=== PATIENT | female | born 1975 | race Caucasian/White ===

== ENCOUNTER 2017-08-09 13:43 | Inpatient (IN) | payer OTHER, BC ==
[2017-08-09] VITALS (8 sets, daily range): BP systolic 92–133; BP diastolic 51–77
[~2017-08-09] VITALS: Ht 167.6 cm; Wt 90.0 kg
[~2017-08-09 13:43] MED LIST: ACET1TAB33 PO; ALPR0.5T PO; CEFT1VIA IJ; CITA20TA9 PO; CYCL-331 PO; FLUC100T7 PO; Hydrocodone Bit/Acetaminophen PO; INSU100C4 SQ; INSU100I13 SQ; METO25TA2 PO; MICO30CR11 TP
[2017-08-09] MEDS ORDERED: HYDR200T71 PO (15:36)
[2017-08-09] MEDS ORDERED: PREG100C PO (15:36)
[2017-08-09] MEDS ORDERED: TOPI100T42 PO (15:36)
[2017-08-09] MEDS ORDERED: CLON1TAB3 PO (15:36)
[2017-08-09] MEDS ORDERED: BUPR300T3 PO (15:36)
[2017-08-09] MEDS ORDERED: SERT100T PO (15:36)
[2017-08-09] MEDS ORDERED: INSU200I SQ (15:36)
[2017-08-09] MEDS ORDERED: INSU100I32 SQ (15:36)
[2017-08-09] MEDS ORDERED: ATOR40TA PO (15:36)
[2017-08-09] MEDS ORDERED: diphenhydrAMINE 50 MG/ML VIAL IV PRN (15:45)
[2017-08-09] MEDS ORDERED: CALCIUM CARBONATE 500 MG TAB.CHEW PO PRN (15:45)
[2017-08-09] MEDS ORDERED: ELECTROLYTE (NON-ICU) PROTOCOL MC PRN (15:45)
[2017-08-09] MEDS ORDERED: PROCHLORPERAZINE 10 MG/2 ML VIAL. IV PRN (15:45)
[2017-08-09] MEDS ORDERED: clonazePAM 1 MG TABLET PO PRN (15:45)
[2017-08-09] MEDS ORDERED: INSULIN REGULAR 150 UNIT in 0.9 % SODIUM CHLORIDE 150ML 150 ML IV PRN (15:45)
[2017-08-09] MEDS ORDERED: PROMETHAZINE 12.5 MG in IV NORMAL SALINE 50ML 50 ML IV PRN (15:45)
[2017-08-09] MEDS ORDERED: ONDANSETRON PF 4 MG/2 ML VIAL. IV PRN (15:45)
[2017-08-09] MEDS ORDERED: diphenhydrAMINE HCL 25 MG CAPSULE PO PRN (15:45)
[2017-08-09] MEDS ORDERED: LACTULOSE 20 GM/30 ML SOLUTION. PO PRN (15:45)
[2017-08-09] MEDS ORDERED: ACETAMINOPHEN 325 MG TABLET PO PRN (15:45)
[2017-08-09] MEDS ORDERED: 0.9 % SODIUM CHLORIDE 10 ML DISP.SYRIN. IV PRN (15:45)
--- NOTE | 2017-08-09 15:52 | PDOC1 ---
History of Present Illness Reason for Visit: DKA History of Present Illness Pt reports she is a Type 1 diabetic and was in her normal state of health until Monday, when she started to feel "sick." She denies vomiting, but states she did have nausea and diarrhea on Monday. She also started her menstrual cycle on Monday, which she says was on-time and normal for her. She denies any recent URI symptoms, no cough, congestion, runny nose, fever, or headache. She was feeling a little "out of it," and went to the ER at [facility] on Monday. She apparently had labs, a UA, and CXR, and nothing was found wrong, and she was sent home. She says her sugars have been in the 300 range, but not as high as they were the last time she was in DKA. She says she has not eaten since yesterday. Today, she was feeling worse so she went to her doctor's office and was sent straight to the ER. She was dx w/ DKA, HCO3 was 7. CT head was negative. Pt was given at least 3 liters of NS. She is on an insulin drip, BG in low 200's. Currently, she states she feels much better and wants to eat. Pt 's primary complaint on admission to the ER was palpitations, EKG reported negative except for sinus tach in ER. Chief Complaint: "I don't feel right" Allergies: Coded Allergies: No Known Drug Allergies (Unverified , 06/21/14) Past Medical History Cardiac: hyperipidemia Psych: Depression Endocrine: Diabetes (Type 1) Past Surgical History: No pertinent history Family History: No pertinent hx Past Social History Smoke: 1 pack per day Alcohol: rare (One drink this weekend, which is rare for her) Drugs: None Lives: with Family Review of Systems Review Of Systems Fourteen system , review of systems has been reviewed. See HPI for pertinent positives and negative responses, other wadsworth all other systems are negative, non pertinent or non contributory Allergies: Coded Allergies: No Known Drug Allergies (Unverified , 06/21/14) Medications Current Medications Insulin Human Regular 150 unit/ Sodium Chloride 151.5 ml @ 0 mls/hr CONT PRN PRN IV PER PROTOCOL; Start 08/09/17 at 15:45 Sodium Chloride (Normal Saline Flush) 3 ml PRN DAILY PRN IV AFTER MEDS AND BLOOD DRAWS; Start 08/09/17 at 15:45; Status UNV Acetaminophen (Tylenol) 650 mg PRN Q6HRS PRN PO Headaches, Temp > 101.5F; Start 08/09/17 at 15:45; Status UNV Lactulose (Lactulose) 20 gm PRN Q12HR PRN PO CONSTIPATION; Start 08/09/17 at 15 :45; Status UNV Calcium Carbonate/ Glycine (Tums) 500 mg PRN Q3HRS PRN PO HEARTBURN / GAS; Start 08/09/17 at 15:45; Status UNV Info (Non-Icu Electrolyte Protocol) 1 ea CONT PRN PRN MC SEE COMMENTS; Start at 15:45; Status UNV Prochlorperazine Edisylate (Compazine) 10 mg PRN Q4HRS PRN IV NAUSEA/VOMITING; Start 08/09/17 at 15:45; Status UNV Promethazine HCl 12.5 mg/Sodium Chloride 50.5 ml @ 100 mls/hr PRN Q6HRS PRN IV NAUSEA/VOMITING; Start 08/09/17 at 15:45; Status UNV Ondansetron HCl (Zofran) 4 mg PRN Q8HRS PRN IV NAUSEA/VOMITING; Start 08/09/17 at 15:45; Status UNV Diphenhydramine HCl (Benadryl) 25 mg PRN Q6HRS PRN PO SEE COMMENTS; Start 08/09 at 15:45; Status UNV Diphenhydramine HCl (Benadryl) 25 mg PRN Q6HRS PRN IV SEE COMMENTS; Start 08/09 at 15:45; Status UNV Bupropion HCl (Wellbutrin Xl) 300 mg DAILY PO ; Start 08/10/17 at 09:00; Status UNV Active Scripts Active Reported Topamax (Topiramate) 100 Mg Tablet 1 Tab PO DAILY Zoloft (Sertraline Hcl) 100 Mg Tablet 1 Tab PO DAILY Lyrica (Pregabalin) 100 Mg Capsule 1 Cap PO TID Humalog Kwikpen (Insulin Lispro) 200 Unit/1 Ml Insuln.pen 25 Unit SQ TIDAC Basaglar Kwikpen U-100 (Insulin Glargine,Hum.rec.anlog) 100 Unit/1 Ml Insuln.pen 80 Unit SQ DAILY Plaquenil (Hydroxychloroquine Sulfate) 200 Mg Tablet 200 Mg PO DAILY Clonazepam 1 Mg Tablet 1 Tab PO BID PRN Wellbutrin Xl (Bupropion Hcl) 300 Mg Tab.er.24h 1 Tab PO DAILY Lipitor (Atorvastatin Calcium) 40 Mg Tablet 1 Tab PO DAILY Exam Vital Signs Vital Signs Date Time Temp Pulse Resp B/P (MAP) Pulse Ox O2 Delivery O2 Flow Rate FiO2 08/09/17 15:37 98.8 98 21 111/77 (88) 98 Room Air General Appearance: Alert, Oriented X3, Cooperative, No acute distress HEENT: Atraumatic, PERRLA, EOMI, Mucous membr. moist/pink, Other (Neck supple, full ROM, no JVD< no LAD, No thyromegaly) Respiratory: Clear to auscultation, Normal air movement Heart: Regular rate, Normal S1, Normal S2, No murmurs Abdominal: Normal bowel sounds, Soft, No tenderness, No hepatospenomegaly, No masses Extremities: No edema, Normal pulses, No tenderness/swelling Skin: No rashes, No breakdown Neuro: Normal speech, Strength at 5/5 X4 ext, Normal tone, Sensation intact, Cranial nerves 3-12 NL, Reflexes 2+ Psych/Mental Status: Mental status NL, Mood NL Assessment/Plan Assessment/Plan 1. DKA: IVF pending BMP results. Advance diet. Insulin drip. F/u on cultures from [facility]. Pt already feeling better. May transition back to normal insulin dosing this evening. Will see how next BMP looks. 2. Depression: Continue home meds, pt stable. 3. Hyperlipidemia: Cont statin. 4. DVT proph: Low risk, ambulate when possible, SCD's while in bed. COURSE Allergies Coded Allergies Type Severity Reaction Last Updated Verified No Known Drug Allergies 06/21/14 No Current Medications Medications (Trade) Dose Ordered Sig/[place] Route PRN Reason Start Time Stop Time Status Last Admin Dose Admin Insulin Human Regular 150 unit/ Sodium Chloride 151.5 ml @ 0 mls/hr CONT PRN PRN IV PER PROTOCOL 08/09/17 15:45 Sodium Chloride (Normal Saline Flush) 3 ml PRN DAILY PRN IV AFTER MEDS AND BLOOD DRAWS 08/09/17 15:45 UNV Acetaminophen (Tylenol) 650 mg PRN Q6HRS PRN PO Headaches, Temp > 101.5F 08/09/17 15:45 UNV Lactulose (Lactulose) 20 gm PRN Q12HR PRN PO CONSTIPATION 08/09/17 15:45 UNV Calcium Carbonate/ Glycine (Tums) 500 mg PRN Q3HRS PRN PO HEARTBURN / GAS 08/09/17 15:45 UNV Info (Non-Icu Electrolyte Protocol) 1 ea CONT PRN PRN MC SEE COMMENTS 08/09/17 15:45 UNV Prochlorperazine Edisylate (Compazine) 10 mg PRN Q4HRS PRN IV NAUSEA/VOMITING 08/09/17 15:45 UNV Promethazine HCl 12.5 mg/Sodium Chloride 50.5 ml @ 100 mls/hr PRN Q6HRS PRN IV NAUSEA/VOMITING 08/09/17 15:45 UNV Ondansetron HCl (Zofran) 4 mg PRN Q8HRS PRN IV NAUSEA/VOMITING 08/09/17 15:45 UNV Diphenhydramine HCl (Benadryl) 25 mg PRN Q6HRS PRN PO SEE COMMENTS 08/09/17 15:45 UNV Diphenhydramine HCl (Benadryl) 25 mg PRN Q6HRS PRN IV SEE COMMENTS 08/09/17 15:45 UNV Bupropion HCl (Wellbutrin Xl) 300 mg DAILY PO 08/10/17 09:00 UNV Vital Signs Date Time Temp Pulse Resp B/P (MAP) Pulse Ox O2 Delivery O2 Flow Rate FiO2 08/09/17 15:37 98.8 98 21 111/77 (88) 98 Room Air ANETA LOUIS MD Aug 09, 2017 15:52
[2017-08-09 16:25] LABS: CALCIUM 8.5 mg/dL (8.5-10.1); CREATININE 0.7 mg/dL (0.6-1.0); GFR 92.7; POTASSIUM 4.6 mmol/L (3.5-5.1)
[2017-08-09] MEDS ORDERED: IV NORMAL SALINE 1,000ML 1,000 ML IV SCH (16:30)
[2017-08-09 19:01] LABS: CALCIUM 6.7 mg/dL (8.5-10.1); CREATININE 0.5 mg/dL (0.6-1.0); GFR 136.6; POTASSIUM 3.1 mmol/L (3.5-5.1)
[2017-08-09] MEDS ORDERED: POTASSIUM CHLORIDE 20 MEQ TABLET.ER. PO ONE (20:00)
[2017-08-09] MEDS: POTASSIUM CL 20MEQ IN 0.9%NACL 1,000 ML IV SCH (20:11)
[2017-08-09] MEDS: PREGABALIN 100 MG CAPSULE PO SCH (21:51)
[2017-08-09] MEDS: INSULIN DETEMIR 300 UNITS/3 ML INSULN.PEN. SQ SCH (21:52)
[2017-08-09 22:13] LABS: CALCIUM 8.1 mg/dL (8.5-10.1); CREATININE 0.7 mg/dL (0.6-1.0); GFR 92.7; POTASSIUM 4.1 mmol/L (3.5-5.1)
[2017-08-10] VITALS (19 sets, daily range): BP systolic 90–142; BP diastolic 59–95
[2017-08-10] MEDS: POTASSIUM CL 20MEQ IN 0.9%NACL 1,000 ML IV SCH ×4 (02:50→19:55)
[2017-08-10 06:47] LABS: CALCIUM 8.3 mg/dL (8.5-10.1); CREATININE 0.5 mg/dL (0.6-1.0); GFR 136.6; POTASSIUM 4.1 mmol/L (3.5-5.1)
[2017-08-10 06:48] LABS: BASO % 1 % (0-3); EOS # 0.2 x10^3/uL (0.0-0.7); EOS % 4 % (0-3); HEMATOCRIT 39.7 % (36.0-47.0); HEMOGLOBIN 13.9 g/dL (12.0-15.5); LYMPH # 1.4 x10^3/uL (1.0-4.8); LYMPH % 23 % (24-48); MEAN CORPUSCULAR HEMOGLOBIN 29 pg (25-35); MEAN CORPUSCULAR HGB CONC 35 g/dL (31-37); MEAN CORPUSCULAR VOLUME 81 fL (79-100); MONO # 0.4 x10^3/uL (0.0-1.1); MONO % 6 % (0-9); NEUT # 4.1 x10^3uL (1.8-7.7); NEUT % 66 % (31-73); PLATELET COUNT 242 x10^3/uL (140-400); RED BLOOD COUNT 4.87 x10^6/uL (3.50-5.40); RED CELL DISTRIBUTION WIDTH 13.3 % (11.5-14.5); WHITE BLOOD COUNT 6.1 x10^3/uL (4.0-11.0)
[2017-08-10] MEDS: HYDROXYCHLOROQUINE 200 MG TABLET PO SCH (08:22)
[2017-08-10] MEDS: buPROPion XL 300 MG TAB.ER.24H. PO SCH (08:22)
[2017-08-10] MEDS: ATORVASTATIN CALCIUM 20 MG TABLET PO SCH (08:22)
[2017-08-10] MEDS: PREGABALIN 100 MG CAPSULE PO SCH ×2 (08:22→14:24)
[2017-08-10] MEDS: TOPIRAMATE 100 MG TABLET. PO SCH (08:22)
[2017-08-10] MEDS: SERTRALINE 100 MG TABLET. PO SCH (08:22)
[2017-08-10] MEDS ORDERED: IV NORMAL SALINE 1,000ML 1,000 ML IV ONE (08:30)
[2017-08-10] MEDS: INSULIN ASPART 300 UNITS/3 ML INSULN.PEN SQ SCH ×3 (08:30→17:08)
--- NOTE | 2017-08-10 08:34 | PDOC ---
PROGRESS NOTES Assessment 1. DKA: Bicarb up to 15. Pt feeling better but still a little weak and LH w/ standing. BG's much improved, pt eating and is on her home insulin. Will give another 1 liter bolus of NS and repeat her BMP at 11 AM. Pt may need another day of rehydration prior to discharge. 2. Depression: Continue home meds, pt stable. 3. Hyperlipidemia: Cont statin. 4. DVT proph: Low risk, but pt not ambulating much. Will start heparin. Problems: Plan of Care: see other orders Subjective Pt feeling better. Eating well. BG's better. States still a little LH w/ standing. Denies fever, vomiting, diarrhea, cough, SOA, chest pain. Objective Vital Signs Date Time Temp Pulse Resp B/P (MAP) Pulse Ox O2 Delivery O2 Flow Rate FiO2 08/10/17 08:02 94 17 99/60 (73) 98 Room Air 08/09/17 22:00 98.4 Intake and Output 08/10/17 07:00 Intake Total 3527 ml Balance 3527 ml Intake Oral 1440 ml IV Total 2087 ml # Voids 4 Abdomen: Soft, No tenderness, No hepatospenomegaly, No masses Heart: Regular rate, Normal S1, Normal S2, No murmurs Extremities: No edema, Normal pulses General: Alert, Oriented X3, Cooperative, No acute distress HEENT: Atraumatic, PERRLA, EOMI, Mucous membr. moist/pink Lungs: Clear to auscultation, Normal air movement Neck: Supple, No JVD Neuro: Normal tone, Cranial nerves 3-12 NL Psych/Mental Status: Mental status NL, Mood NL Skin: No rashes, No breakdown Review of Relevant I have reviewed the following items anastasiia (where applicable) has been applied. Labs Laboratory Tests Test 08/09/17 15:55 08/09/17 18:13 08/09/17 18:40 08/09/17 20:24 Sodium Level 133 mmol/L (136-145) 138 mmol/L (136-145) Potassium Level 4.6 mmol/L (3.5-5.1) 3.1 mmol/L (3.5-5.1) Chloride Level 103 mmol/L (98-107) 110 mmol/L (98-107) Carbon Dioxide Level 10 mmol/L (21-32) 13 mmol/L (21-32) Anion Gap 20 (6-14) 15 (6-14) Blood Urea Nitrogen 13 mg/dL (7-20) 11 mg/dL (7-20) Creatinine 0.7 mg/dL (0.6-1.0) 0.5 mg/dL (0.6-1.0) Estimated GFR (Cockcroft-Gault) 92.7 136.6 Glucose Level 213 mg/dL (70-99) 249 mg/dL (70-99) Calcium Level 8.5 mg/dL (8.5-10.1) 6.7 mg/dL (8.5-10.1) Glucose (Fingerstick) 290 mg/dL (70-99) 164 mg/dL (70-99) Test 08/09/17 21:45 08/09/17 21:55 08/09/17 22:48 08/09/17 23:54 Glucose (Fingerstick) 176 mg/dL (70-99) 160 mg/dL (70-99) 160 mg/dL (70-99) Sodium Level 136 mmol/L (136-145) Potassium Level 4.1 mmol/L (3.5-5.1) Chloride Level 106 mmol/L (98-107) Carbon Dioxide Level 16 mmol/L (21-32) Anion Gap 14 (6-14) Blood Urea Nitrogen 13 mg/dL (7-20) Creatinine 0.7 mg/dL (0.6-1.0) Estimated GFR (Cockcroft-Gault) 92.7 Glucose Level 203 mg/dL (70-99) Calcium Level 8.1 mg/dL (8.5-10.1) Test 08/10/17 00:41 08/10/17 06:21 Glucose (Fingerstick) 156 mg/dL (70-99) White Blood Count 6.1 x10^3/uL (4.0-11.0) Red Blood Count 4.87 x10^6/uL (3.50-5.40) Hemoglobin 13.9 g/dL (12.0-15.5) Hematocrit 39.7 % (36.0-47.0) Mean Corpuscular Volume 81 fL (79-100) Mean Corpuscular Hemoglobin 29 pg (25-35) Mean Corpuscular Hemoglobin Concent 35 g/dL (31-37) Red Cell Distribution Width 13.3 % (11.5-14.5) Platelet Count 242 x10^3/uL (140-400) Neutrophils (%) (Auto) 66 % (31-73) Lymphocytes (%) (Auto) 23 % (24-48) Monocytes (%) (Auto) 6 % (0-9) Eosinophils (%) (Auto) 4 % (0-3) Basophils (%) (Auto) 1 % (0-3) Neutrophils # (Auto) 4.1 x10^3uL (1.8-7.7) Lymphocytes # (Auto) 1.4 x10^3/uL (1.0-4.8) Monocytes # (Auto) 0.4 x10^3/uL (0.0-1.1) Eosinophils # (Auto) 0.2 x10^3/uL (0.0-0.7) Basophils # (Auto) 0.0 x10^3/uL (0.0-0.2) Sodium Level 138 mmol/L (136-145) Potassium Level 4.1 mmol/L (3.5-5.1) Chloride Level 108 mmol/L (98-107) Carbon Dioxide Level 15 mmol/L (21-32) Anion Gap 15 (6-14) Blood Urea Nitrogen 9 mg/dL (7-20) Creatinine 0.5 mg/dL (0.6-1.0) Estimated GFR (Cockcroft-Gault) 136.6 Glucose Level 169 mg/dL (70-99) Calcium Level 8.3 mg/dL (8.5-10.1) Medications Current Medications Insulin Human Regular 150 unit/ Sodium Chloride 151.5 ml @ 0 mls/hr CONT PRN PRN IV PER PROTOCOL Last administered on 08/09/17at 16:36; Start 08/09/17 at 15: 45 Sodium Chloride (Normal Saline Flush) 3 ml PRN DAILY PRN IV AFTER MEDS AND BLOOD DRAWS; Start 08/09/17 at 15:45 Acetaminophen (Tylenol) 650 mg PRN Q6HRS PRN PO Headaches, Temp > 101.5F; Start 08/09/17 at 15:45 Lactulose (Lactulose) 20 gm PRN Q12HR PRN PO CONSTIPATION; Start 08/09/17 at 15 :45 Calcium Carbonate/ Glycine (Tums) 500 mg PRN Q3HRS PRN PO HEARTBURN / GAS; Start 08/09/17 at 15:45 Info (Non-Icu Electrolyte Protocol) 1 ea CONT PRN PRN MC SEE COMMENTS; Start at 15:45 Prochlorperazine Edisylate (Compazine) 10 mg PRN Q4HRS PRN IV NAUSEA/VOMITING; Start 08/09/17 at 15:45 Promethazine HCl 12.5 mg/Sodium Chloride 50.5 ml @ 100 mls/hr PRN Q6HRS PRN IV NAUSEA/VOMITING; Start 08/09/17 at 15:45 Ondansetron HCl (Zofran) 4 mg PRN Q8HRS PRN IV NAUSEA/VOMITING; Start 08/09/17 at 15:45 Diphenhydramine HCl (Benadryl) 25 mg PRN Q6HRS PRN PO SEE COMMENTS; Start 08/09 at 15:45 Diphenhydramine HCl (Benadryl) 25 mg PRN Q6HRS PRN IV SEE COMMENTS; Start 08/09 at 15:45 Bupropion HCl (Wellbutrin Xl) 300 mg DAILY PO ; Start 08/10/17 at 09:00 Clonazepam (KlonoPIN) 1 mg BID PRN PO ANXIETY / AGITATION; Start 08/09/17 at 15 :45 Hydroxychloroquine Sulfate (Plaquenil) 200 mg DAILY PO ; Start 08/10/17 at 09:00 Pregabalin (Lyrica) 100 mg TID PO Last administered on 08/09/17at 21:51; Start 08/09/17 at 21:00 Sertraline HCl (Zoloft) 100 mg DAILY PO ; Start 08/10/17 at 09:00 Topiramate (Topamax) 100 mg DAILY PO ; Start 08/10/17 at 09:00 Atorvastatin Calcium (Lipitor) 40 mg DAILY PO ; Start 08/10/17 at 09:00 Sodium Chloride 1,000 ml @ 200 mls/hr Q5H IV Last administered on 08/09/17at 16 :37; Start 08/09/17 at 16:30; Stop 08/09/17 at 19:53; Status DC Insulin Detemir (Levemir) 80 units QHS SQ Last administered on 08/09/17at 21:52 ; Start 08/09/17 at 21:00 Potassium Chloride/Sodium Chloride 1,000 ml @ 200 mls/hr Q5H IV Last administered on 08/10/17at 02:50; Start 08/09/17 at 19:45 Potassium Chloride (Klor-Con) 40 meq 1X ONCE PO Last administered on at 20:10; Start 08/09/17 at 20:00; Stop 08/09/17 at 20:01; Status DC Insulin Aspart (NovoLOG) 25 units TIDAC SQ ; Start 08/10/17 at 07:30 Active Scripts Active Reported Topamax (Topiramate) 100 Mg Tablet 1 Tab PO DAILY Zoloft (Sertraline Hcl) 100 Mg Tablet 1 Tab PO DAILY Lyrica (Pregabalin) 100 Mg Capsule 1 Cap PO TID Humalog Kwikpen (Insulin Lispro) 200 Unit/1 Ml Insuln.pen 25 Unit SQ TIDAC Basaglar Kwikpen U-100 (Insulin Glargine,Hum.rec.anlog) 100 Unit/1 Ml Insuln.pen 80 Unit SQ DAILY Plaquenil (Hydroxychloroquine Sulfate) 200 Mg Tablet 200 Mg PO DAILY Clonazepam 1 Mg Tablet 1 Tab PO BID PRN Wellbutrin Xl (Bupropion Hcl) 300 Mg Tab.er.24h 1 Tab PO DAILY Lipitor (Atorvastatin Calcium) 40 Mg Tablet 1 Tab PO DAILY Vitals/I & O Vital Sign - Last 24 Hours 08/09/17 08/09/17 08/09/17 08/09/17 15:37 16:42 18:18 19:00 Temp 98.8 Pulse 98 128 106 94 Resp 18 B/P (MAP) 111/77 (88) 111/71 (84) 131/70 (90) 113/73 (86) Pulse Ox 98 98 98 99 O2 Delivery Room Air Room Air Room Air Room Air 08/09/17 08/09/17 08/09/17 08/09/17 20:00 20:00 21:00 22:00 Temp 98.4 Pulse 94 98 98 Resp 18 18 20 B/P (MAP) 109/76 (87) 94/51 (65) 133/73 (93) Pulse Ox 98 99 98 O2 Delivery Room Air Room Air Room Air Room Air 08/09/17 08/10/17 08/10/17 08/10/17 23:00 00:00 00:01 02:00 Pulse 98 87 90 Resp 16 16 16 B/P (MAP) 92/59 (70) 110/71 (84) 91/69 (76) Pulse Ox 98 97 98 O2 Delivery Room Air Room Air Room Air Room Air 08/10/17 08/10/17 08/10/17 08/10/17 03:00 04:00 04:00 05:00 Pulse 84 83 78 Resp 16 16 14 B/P (MAP) 99/67 (78) 90/66 (74) 97/70 (79) Pulse Ox 97 98 97 O2 Delivery Room Air Room Air Room Air Room Air 08/10/17 08/10/17 06:00 08:02 Pulse 88 94 Resp 18 17 B/P (MAP) 100/66 (77) 99/60 (73) Pulse Ox 98 98 O2 Delivery Room Air Room Air Intake and Output 08/09/17 08/09/17 08/10/17 15:00 23:00 07:00 Intake Total 1772 ml 1755 ml Balance 1772 ml 1755 ml ANETA LOUIS MD Aug 10, 2017 08:34
[2017-08-10 12:03] LABS: CALCIUM 8.2 mg/dL (8.5-10.1); CREATININE 0.5 mg/dL (0.6-1.0); GFR 136.6; POTASSIUM 3.9 mmol/L (3.5-5.1)
[2017-08-10] MEDS: HEPARIN PF for SUB-Q USE 5,000 UNIT/0.5 ML VIAL. SQ SCH ×2 (14:25→22:00)
[2017-08-10 19:42] LABS: CALCIUM 8.7 mg/dL (8.5-10.1); CREATININE 0.7 mg/dL (0.6-1.0); GFR 92.7; POTASSIUM 3.9 mmol/L (3.5-5.1)
[2017-08-10] MEDS ORDERED: PREGABALIN 50 MG CAPSULE PO SCH (21:30)
[2017-08-10] MEDS: PREGABALIN 50 MG CAPSULE PO SCH (21:47)
[2017-08-10] MEDS: INSULIN DETEMIR 300 UNITS/3 ML INSULN.PEN. SQ SCH (21:48)
[2017-08-11 00:01] VITALS: BP 123/71
[2017-08-11 02:00] VITALS: BP 119/88
[2017-08-11] MEDS: POTASSIUM CL 20MEQ IN 0.9%NACL 1,000 ML IV SCH ×2 (02:40→06:30)
[2017-08-11 03:00] VITALS: BP 111/67
[2017-08-11 04:00] VITALS: BP 84/64
[2017-08-11 05:00] VITALS: BP 109/76
[2017-08-11 06:00] VITALS: BP 81/53
[2017-08-11] MEDS: HEPARIN PF for SUB-Q USE 5,000 UNIT/0.5 ML VIAL. SQ SCH (06:00)
[2017-08-11 06:33] LABS: CALCIUM 8.4 mg/dL (8.5-10.1); CREATININE 0.5 mg/dL (0.6-1.0); GFR 136.6; POTASSIUM 3.5 mmol/L (3.5-5.1)
[2017-08-11 06:40] LABS: HEMATOCRIT 37.6 % (36.0-47.0); HEMOGLOBIN 12.8 g/dL (12.0-15.5); RED BLOOD COUNT 4.58 x10^6/uL (3.50-5.40); RED CELL DISTRIBUTION WIDTH 13.6 % (11.5-14.5); WHITE BLOOD COUNT 5.1 x10^3/uL (4.0-11.0)
[2017-08-11] MEDS ORDERED: POTASSIUM CL 20MEQ IN 0.9%NACL 1,000 ML IV SCH (06:45)
[2017-08-11] MEDS ORDERED: POTASSIUM CHLORIDE 20 MEQ TABLET.ER. PO ONE (07:15)
[2017-08-11] MEDS: buPROPion XL 300 MG TAB.ER.24H. PO SCH (07:26)
[2017-08-11] MEDS: HYDROXYCHLOROQUINE 200 MG TABLET PO SCH (07:26)
[2017-08-11] MEDS: PREGABALIN 50 MG CAPSULE PO SCH (07:27)
[2017-08-11] MEDS: TOPIRAMATE 100 MG TABLET. PO SCH (07:28)
[2017-08-11] MEDS: ATORVASTATIN CALCIUM 20 MG TABLET PO SCH (07:28)
[2017-08-11] MEDS: SERTRALINE 100 MG TABLET. PO SCH (07:28)
--- NOTE | 2017-08-11 07:50 | PDOC3 ---
Discharge Summary Visit Information Date of Admission: Aug 09, 2017 Date of Discharge: Aug 11, 2017 Admitting Diagnosis: DKA, Depression Final Diagnosis DKA Depression Problems: Brief Hospital Course Allergies Allergies Coded Allergies Type Severity Reaction Last Updated Verified No Known Drug Allergies 06/21/14 No Vital Signs Vital Signs Date Time Temp Pulse Resp B/P (MAP) Pulse Ox O2 Delivery O2 Flow Rate FiO2 08/11/17 06:00 72 16 81/53 (62) 97 Room Air 08/10/17 19:00 98.0 Lab Results Laboratory Tests Test 08/09/17 15:31 08/09/17 15:55 08/09/17 18:13 08/09/17 18:40 Nasal Screen MRSA (PCR) Negative (Negative) Sodium Level 133 mmol/L (136-145) 138 mmol/L (136-145) Potassium Level 4.6 mmol/L (3.5-5.1) 3.1 mmol/L (3.5-5.1) Chloride Level 103 mmol/L (98-107) 110 mmol/L (98-107) Carbon Dioxide Level 10 mmol/L (21-32) 13 mmol/L (21-32) Anion Gap 20 (6-14) 15 (6-14) Blood Urea Nitrogen 13 mg/dL (7-20) 11 mg/dL (7-20) Creatinine 0.7 mg/dL (0.6-1.0) 0.5 mg/dL (0.6-1.0) Estimated GFR (Cockcroft-Gault) 92.7 136.6 Glucose Level 213 mg/dL (70-99) 249 mg/dL (70-99) Calcium Level 8.5 mg/dL (8.5-10.1) 6.7 mg/dL (8.5-10.1) Glucose (Fingerstick) 290 mg/dL (70-99) Test 08/09/17 20:24 08/09/17 21:45 08/09/17 21:55 08/09/17 22:48 Glucose (Fingerstick) 164 mg/dL (70-99) 176 mg/dL (70-99) 160 mg/dL (70-99) Sodium Level 136 mmol/L (136-145) Potassium Level 4.1 mmol/L (3.5-5.1) Chloride Level 106 mmol/L (98-107) Carbon Dioxide Level 16 mmol/L (21-32) Anion Gap 14 (6-14) Blood Urea Nitrogen 13 mg/dL (7-20) Creatinine 0.7 mg/dL (0.6-1.0) Estimated GFR (Cockcroft-Gault) 92.7 Glucose Level 203 mg/dL (70-99) Calcium Level 8.1 mg/dL (8.5-10.1) Test 08/09/17 23:54 08/10/17 00:41 08/10/17 06:21 08/10/17 08:15 Glucose (Fingerstick) 160 mg/dL (70-99) 156 mg/dL (70-99) 153 mg/dL (70-99) White Blood Count 6.1 x10^3/uL (4.0-11.0) Red Blood Count 4.87 x10^6/uL (3.50-5.40) Hemoglobin 13.9 g/dL (12.0-15.5) Hematocrit 39.7 % (36.0-47.0) Mean Corpuscular Volume 81 fL (79-100) Mean Corpuscular Hemoglobin 29 pg (25-35) Mean Corpuscular Hemoglobin Concent 35 g/dL (31-37) Red Cell Distribution Width 13.3 % (11.5-14.5) Platelet Count 242 x10^3/uL (140-400) Neutrophils (%) (Auto) 66 % (31-73) Lymphocytes (%) (Auto) 23 % (24-48) Monocytes (%) (Auto) 6 % (0-9) Eosinophils (%) (Auto) 4 % (0-3) Basophils (%) (Auto) 1 % (0-3) Neutrophils # (Auto) 4.1 x10^3uL (1.8-7.7) Lymphocytes # (Auto) 1.4 x10^3/uL (1.0-4.8) Monocytes # (Auto) 0.4 x10^3/uL (0.0-1.1) Eosinophils # (Auto) 0.2 x10^3/uL (0.0-0.7) Basophils # (Auto) 0.0 x10^3/uL (0.0-0.2) Sodium Level 138 mmol/L (136-145) Potassium Level 4.1 mmol/L (3.5-5.1) Chloride Level 108 mmol/L (98-107) Carbon Dioxide Level 15 mmol/L (21-32) Anion Gap 15 (6-14) Blood Urea Nitrogen 9 mg/dL (7-20) Creatinine 0.5 mg/dL (0.6-1.0) Estimated GFR (Cockcroft-Gault) 136.6 Glucose Level 169 mg/dL (70-99) Calcium Level 8.3 mg/dL (8.5-10.1) Test 08/10/17 11:24 08/10/17 11:55 08/10/17 16:43 08/10/17 19:20 Sodium Level 137 mmol/L (136-145) 139 mmol/L (136-145) Potassium Level 3.9 mmol/L (3.5-5.1) 3.9 mmol/L (3.5-5.1) Chloride Level 109 mmol/L (98-107) 108 mmol/L (98-107) Carbon Dioxide Level 16 mmol/L (21-32) 17 mmol/L (21-32) Anion Gap 12 (6-14) 14 (6-14) Blood Urea Nitrogen 8 mg/dL (7-20) 10 mg/dL (7-20) Creatinine 0.5 mg/dL (0.6-1.0) 0.7 mg/dL (0.6-1.0) Estimated GFR (Cockcroft-Gault) 136.6 92.7 Glucose Level 173 mg/dL (70-99) 171 mg/dL (70-99) Calcium Level 8.2 mg/dL (8.5-10.1) 8.7 mg/dL (8.5-10.1) Glucose (Fingerstick) 167 mg/dL (70-99) 113 mg/dL (70-99) Test 08/10/17 21:33 08/11/17 05:39 08/11/17 06:11 Glucose (Fingerstick) 129 mg/dL (70-99) Sodium Level 142 mmol/L (136-145) Potassium Level 3.5 mmol/L (3.5-5.1) Chloride Level 112 mmol/L (98-107) Carbon Dioxide Level 20 mmol/L (21-32) Anion Gap 10 (6-14) Blood Urea Nitrogen 9 mg/dL (7-20) Creatinine 0.5 mg/dL (0.6-1.0) Estimated GFR (Cockcroft-Gault) 136.6 Glucose Level 85 mg/dL (70-99) Calcium Level 8.4 mg/dL (8.5-10.1) White Blood Count 5.1 x10^3/uL (4.0-11.0) Red Blood Count 4.58 x10^6/uL (3.50-5.40) Hemoglobin 12.8 g/dL (12.0-15.5) Hematocrit 37.6 % (36.0-47.0) Mean Corpuscular Volume 82 fL (79-100) Mean Corpuscular Hemoglobin 28 pg (25-35) Mean Corpuscular Hemoglobin Concent 34 g/dL (31-37) Red Cell Distribution Width 13.6 % (11.5-14.5) Platelet Count 219 x10^3/uL (140-400) Brief Hospital Course Ms. Sharma is a 41 old woman transferred from [place] [facility] due to no ICU beds being available. No cause (other than poorly controlled DM) was found for her DKA. Cultures were not done at [place]. WBC normal during her entire stay. Pt actually felt much better by the time she got to our hospital, but her HCO3 did not get above 20 until the morning of 08/11. She was continued on her home insulin dosing almost on day of admit and only required an insulin drip for a few hours. She was kept on IVF during her stay. She was given heparin for DVT prophylaxis. No other lab abnormality was found. She will f/u with her PCP Dr. Carmen Raymond. Discharge Information Condition at Discharge: Stable Follow Up: Weeks Disposition/Orders: D/C to Home Dischare Medications Current Medications Insulin Human Regular 150 unit/ Sodium Chloride 151.5 ml @ 0 mls/hr CONT PRN PRN IV PER PROTOCOL Last administered on 08/09/17at 16:36; Start 08/09/17 at 15: 45 Sodium Chloride (Normal Saline Flush) 3 ml PRN DAILY PRN IV AFTER MEDS AND BLOOD DRAWS; Start 08/09/17 at 15:45 Acetaminophen (Tylenol) 650 mg PRN Q6HRS PRN PO Headaches, Temp > 101.5F Last administered on 08/10/17at 08:22; Start 08/09/17 at 15:45 Lactulose (Lactulose) 20 gm PRN Q12HR PRN PO CONSTIPATION; Start 08/09/17 at 15 :45 Calcium Carbonate/ Glycine (Tums) 500 mg PRN Q3HRS PRN PO HEARTBURN / GAS; Start 08/09/17 at 15:45 Info (Non-Icu Electrolyte Protocol) 1 ea CONT PRN PRN MC SEE COMMENTS; Start at 15:45 Prochlorperazine Edisylate (Compazine) 10 mg PRN Q4HRS PRN IV NAUSEA/VOMITING; Start 08/09/17 at 15:45 Promethazine HCl 12.5 mg/Sodium Chloride 50.5 ml @ 100 mls/hr PRN Q6HRS PRN IV NAUSEA/VOMITING; Start 08/09/17 at 15:45 Ondansetron HCl (Zofran) 4 mg PRN Q8HRS PRN IV NAUSEA/VOMITING; Start 08/09/17 at 15:45 Diphenhydramine HCl (Benadryl) 25 mg PRN Q6HRS PRN PO SEE COMMENTS; Start 08/09 at 15:45 Diphenhydramine HCl (Benadryl) 25 mg PRN Q6HRS PRN IV SEE COMMENTS; Start 08/09 at 15:45 Bupropion HCl (Wellbutrin Xl) 300 mg DAILY PO Last administered on 08/10/17at 08 :22; Start 08/10/17 at 09:00 Clonazepam (KlonoPIN) 1 mg BID PRN PO ANXIETY / AGITATION; Start 08/09/17 at 15 :45 Hydroxychloroquine Sulfate (Plaquenil) 200 mg DAILY PO Last administered on at 08:22; Start 08/10/17 at 09:00 Pregabalin (Lyrica) 100 mg TID PO Last administered on 08/10/17at 14:24; Start 08/09/17 at 21:00; Stop 08/10/17 at 21:26; Status DC Sertraline HCl (Zoloft) 100 mg DAILY PO Last administered on 08/10/17at 08:22; Start 08/10/17 at 09:00 Topiramate (Topamax) 100 mg DAILY PO Last administered on 08/10/17at 08:22; Start 08/10/17 at 09:00 Atorvastatin Calcium (Lipitor) 40 mg DAILY PO Last administered on 08/10/17at 08 :22; Start 08/10/17 at 09:00 Sodium Chloride 1,000 ml @ 200 mls/hr Q5H IV Last administered on 08/09/17at 16 :37; Start 08/09/17 at 16:30; Stop 08/09/17 at 19:53; Status DC Insulin Detemir (Levemir) 80 units QHS SQ Last administered on 08/10/17at 21:48 ; Start 08/09/17 at 21:00 Potassium Chloride/Sodium Chloride 1,000 ml @ 200 mls/hr Q5H IV Last administered on 08/11/17at 02:40; Start 08/09/17 at 19:45; Stop 08/11/17 at 06:39 ; Status DC Potassium Chloride (Klor-Con) 40 meq 1X ONCE PO Last administered on at 20:10; Start 08/09/17 at 20:00; Stop 08/09/17 at 20:01; Status DC Insulin Aspart (NovoLOG) 25 units TIDAC SQ Last administered on 08/10/17at 17:08 ; Start 08/10/17 at 07:30 Sodium Chloride 1,000 ml @ 1,000 mls/hr 1X ONCE IV Last administered on at 10:12; Start 08/10/17 at 08:30; Stop 08/10/17 at 09:29; Status DC Heparin Sodium (Porcine) (Heparin Sq) 5,000 unit Q8HRS SQ ; Start 08/10/17 at 14 :00 Pregabalin (Lyrica) 100 mg TID PO ; Start 08/10/17 at 21:30; Stop 08/10/17 at 21 :46; Status DC Pregabalin (Lyrica) 100 mg TID PO Last administered on 08/10/17at 21:47; Start 08/10/17 at 21:45 Potassium Chloride/Sodium Chloride 1,000 ml @ 150 mls/hr Q6H40M IV ; Start at 06:45 Potassium Chloride (Klor-Con) 40 meq 1X ONCE PO ; Start 08/11/17 at 07:15; Stop 08/11/17 at 07:16; Status DC Active Scripts Active Reported Topamax (Topiramate) 100 Mg Tablet 1 Tab PO DAILY Zoloft (Sertraline Hcl) 100 Mg Tablet 1 Tab PO DAILY Lyrica (Pregabalin) 100 Mg Capsule 1 Cap PO TID Humalog Kwikpen (Insulin Lispro) 200 Unit/1 Ml Insuln.pen 25 Unit SQ TIDAC Basaglar Kwikpen U-100 (Insulin Glargine,Hum.rec.anlog) 100 Unit/1 Ml Insuln.pen 80 Unit SQ DAILY Plaquenil (Hydroxychloroquine Sulfate) 200 Mg Tablet 200 Mg PO DAILY Clonazepam 1 Mg Tablet 1 Tab PO BID PRN Wellbutrin Xl (Bupropion Hcl) 300 Mg Tab.er.24h 1 Tab PO DAILY Lipitor (Atorvastatin Calcium) 40 Mg Tablet 1 Tab PO DAILY ANETA LOUIS MD Aug 11, 2017 07:50
== END 2017-08-11 07:47 | disposition home or self-care (01) | DRG 639 ==
LOC: ICU 15:10
PROVIDERS: ADMIT Family Medicine; ATTEND Family Medicine
DX: E10.10 Type 1 diabetes mellitus with ketoacidosis without coma (principal); E78.5 Hyperlipidemia, unspecified; F17.210 Nicotine dependence, cigarettes, uncomplicated; F32.9 Major depressive disorder, single episode, unspecified; Z79.4 Long term (current) use of insulin
CPT/HCPCS: 36415; 80048; 82947; 85025; 85027; 87641; J1815; J7030

== ENCOUNTER 2020-12-12 14:43 | Emergency (ER) | payer BC, OTHER ==
[~2020-12-12] VITALS: Ht 167.6 cm; Wt 66.2 kg
[~2020-12-12 14:43] MED LIST changes: +ATOR40TA PO; +BUPR300T3 PO; +CLON1TAB11 PO; +HYDR200T71 PO; +INSU100I32 SQ; +INSU200I SQ; +PREG100C PO; +SERT100T PO; +TOPI100T42 PO
[2020-12-12] MEDS ORDERED: IV NORMAL SALINE 1,000ML 1,000 ML IV ONE ×2 (15:30)
[2020-12-12 15:57] LABS: BASO # 0.1 x10^3/uL (0.0-0.2); BASO % 1 % (0-3); EOS # 0.1 x10^3/uL (0.0-0.7); EOS % 1 % (0-3); HEMATOCRIT 44.2 % (36.0-47.0); HEMOGLOBIN 14.9 g/dL (12.0-15.5); LYMPH # 1.1 x10^3/uL (1.0-4.8); LYMPH % 11 % (24-48); MEAN CORPUSCULAR HEMOGLOBIN 30 pg (25-35); MEAN CORPUSCULAR HGB CONC 34 g/dL (31-37); MEAN CORPUSCULAR VOLUME 87 fL (79-100); MONO # 0.8 x10^3/uL (0.0-1.1); MONO % 8 % (0-9); NEUT # 7.5 x10^3uL (1.8-7.7); NEUT % 79 % (31-73); PLATELET COUNT 299 x10^3/uL (140-400); RED BLOOD COUNT 5.06 x10^6/uL (3.50-5.40); RED CELL DISTRIBUTION WIDTH 14.7 % (11.5-14.5); WHITE BLOOD COUNT 9.5 x10^3/uL (4.0-11.0)
[2020-12-12 16:00] LABS: CLARITY,URINE CLEAR; COLOR,URINE STRAW; GLUCOSE,URINE >=1000 mg/dL (NEG)
[2020-12-12 16:02] LABS: BILIRUBIN,URINE NEG (NEG)
[2020-12-12 16:03] LABS: NITRITE,URINE NEG (NEG); UROBILINOGEN,URINE 0.2 mg/dL (0.2 mg/dL)
[2020-12-12 16:04] LABS: BACTERIA,URINE 0 /HPF (0-FEW); RBC,URINE 0 /HPF (0-2); SQUAMOUS EPITHELIAL CELL,UR OCC /LPF; WBC,URINE 0 /HPF (0-4)
[2020-12-12 16:15] LABS: CALCIUM 8.6 mg/dL (8.5-10.1); CREATININE 0.7 mg/dL (0.6-1.0); GFR 90.9; POTASSIUM 4.4 mmol/L (3.5-5.1)
[2020-12-12 16:21] LABS: ALBUMIN 3.6 g/dL (3.4-5.0); ALBUMIN/GLOBULIN RATIO 1.1 (1.0-1.7); TOTAL BILIRUBIN 0.4 mg/dL (0.2-1.0)
[2020-12-12 16:22] LABS: U PREG PATIENT NEGATIVE (NEG)
--- NOTE | 2020-12-12 16:34 | PHYS DOC ---
Past History Past Medical History: Anxiety, Diabetes, High Cholesterol, Hypertension Past Surgical History: Other Additional Smoking Information: 1 pack/day Alcohol Use: Occasionally Drug Use: None General Adult EDM: Chief Complaint: BLOOD SUGAR PROBLEM HPI: HPI: Patient is a 45-year-old female who presents with elevated blood sugar. Patient states that she went out last night for her birthday and had some drinks. This morning she started feeling really shaky like her blood sugar had dropped, but she did not have her glucometer with her to check her blood sugar. Patient states that she has not taken any of her diabetic medications today either. Patient's blood sugar was 444. Patient denies chest pain, shortness of breath, nausea vomiting diarrhea. Patient has history of type 1 diabetes, hypertension, hyperlipidemia.. Review of Systems: Review of Systems: Constitutional: Denies fever or chills Eyes: Denies change in visual acuity HENT: Denies nasal congestion or sore throat Respiratory: Denies cough or shortness of breath Cardiovascular: Denies chest pain or edema GI: Denies abdominal pain, nausea, vomiting, bloody stools or diarrhea : Denies dysuria Musculoskeletal: Denies back pain or joint pain Integument: Denies rash Neurologic: Denies headache, focal weakness or sensory changes Endocrine: Denies polyuria or polydipsia Lymphatic: Denies swollen glands Psychiatric: Denies depression or anxiety Current Medications: Current Meds: Current Medications Medications (Trade) Dose Ordered Sig/[place] Start Time Stop Time Status Last Admin Dose Admin Sodium Chloride 1,000 ml @ 1,000 mls/hr 1X ONCE 12/12/20 15:30 12/12/20 16:29 12/12/20 15:47 1,000 MLS/HR Allergies: Allergies: Allergies Coded Allergies Type Severity Reaction Last Updated Verified No Known Drug Allergies 06/21/14 No Physical Exam: PE: Constitutional: Well developed, well nourished, no acute distress, non-toxic appearance. [] HENT: Normocephalic, atraumatic, bilateral external ears normal, oropharynx moist, no oral exudates, nose normal. [] Eyes: PERRLA, EOMI, conjunctiva normal, no discharge. [] Neck: Normal range of motion, no tenderness, supple, no stridor. [] Cardiovascular:Heart rate regular rhythm, no murmur [] Lungs & Thorax: Bilateral breath sounds clear to auscultation [] Abdomen: Bowel sounds normal, soft, no tenderness, no masses, no pulsatile ma sses. [] Skin: Warm, dry, no erythema, no rash. [] Back: No tenderness, no CVA tenderness. [] Extremities: No tenderness, no cyanosis, no clubbing, ROM intact, no edema. [] Neurologic: Alert and oriented X 3, normal motor function, normal sensory function, no focal deficits noted. [] Psychologic: Affect normal, judgement normal, mood normal. [] Current Patient Data: Labs: Laboratory Tests Test 12/12/20 15:17 12/12/20 15:24 12/12/20 15:32 12/12/20 16:14 Urine Collection Type Unknown Urine Color Straw Urine Clarity Clear Urine pH 5.5 Urine Specific [place] <=1.005 Urine Protein Neg (NEG-TRACE) Urine Glucose (UA) >=1000 mg/dL (NEG) Urine Ketones (Stick) Neg mg/dL (NEG) Urine Blood Neg (NEG) Urine Nitrite Neg (NEG) Urine Bilirubin Neg (NEG) Urine Urobilinogen Dipstick 0.2 mg/dL (0.2 mg/dL) Urine Leukocyte Esterase Neg (NEG) Urine RBC 0 /HPF (0-2) Urine WBC 0 /HPF (0-4) Urine Squamous Epithelial Cells Occ /LPF Urine Bacteria 0 /HPF (0-FEW) Sodium Level 134 mmol/L (136-145) L Potassium Level 4.4 mmol/L (3.5-5.1) Chloride Level 99 mmol/L (98-107) Carbon Dioxide Level 27 mmol/L (21-32) Anion Gap 8 (6-14) Blood Urea Nitrogen 9 mg/dL (7-20) Creatinine 0.7 mg/dL (0.6-1.0) Estimated GFR (Cockcroft-Gault) 90.9 BUN/Creatinine Ratio 13 (6-20) Glucose Level 476 mg/dL (70-99) H Calcium Level 8.6 mg/dL (8.5-10.1) Total Bilirubin 0.4 mg/dL (0.2-1.0) Aspartate Amino Transferase (AST) 21 U/L (15-37) Alanine Aminotransferase (ALT) 23 U/L (14-59) Alkaline Phosphatase 125 U/L (46-116) H Total Protein 7.0 g/dL (6.4-8.2) Albumin 3.6 g/dL (3.4-5.0) Albumin/Globulin Ratio 1.1 (1.0-1.7) Glucose (Fingerstick) 444 mg/dL (70-99) H White Blood Count 9.5 x10^3/uL (4.0-11.0) Red Blood Count 5.06 x10^6/uL (3.50-5.40) Hemoglobin 14.9 g/dL (12.0-15.5) Hematocrit 44.2 % (36.0-47.0) Mean Corpuscular Volume 87 fL (79-100) Mean Corpuscular Hemoglobin 30 pg (25-35) Mean Corpuscular Hemoglobin Concent 34 g/dL (31-37) Red Cell Distribution Width 14.7 % (11.5-14.5) H Platelet Count 299 x10^3/uL (140-400) Neutrophils (%) (Auto) 79 % (31-73) H Lymphocytes (%) (Auto) 11 % (24-48) L Monocytes (%) (Auto) 8 % (0-9) Eosinophils (%) (Auto) 1 % (0-3) Basophils (%) (Auto) 1 % (0-3) Neutrophils # (Auto) 7.5 x10^3uL (1.8-7.7) Lymphocytes # (Auto) 1.1 x10^3/uL (1.0-4.8) Monocytes # (Auto) 0.8 x10^3/uL (0.0-1.1) Eosinophils # (Auto) 0.1 x10^3/uL (0.0-0.7) Basophils # (Auto) 0.1 x10^3/uL (0.0-0.2) Urine Test Negative (NEG) Vital Signs: Vital Signs Date Time Temp Pulse Resp B/P (MAP) Pulse Ox O2 Delivery O2 Flow Rate FiO2 12/12/20 16:13 104 18 153/90 (111) 97 Room Air 12/12/20 15:16 98.2 EKG: EKG: [] Radiology/Procedures: Radiology/Procedures: [] Heart Score: C/O Chest Pain: No Risk Factors: Risk Factors: DM, Current or recent (<one month) smoker, HTN, HLP, family history of CAD, obesity. Risk Scores: Score 0 - 3: 2.5% MACE over next 6 weeks - Discharge Home Score 4 - 6: 20.3% MACE over next 6 weeks - Admit for Clinical Observation Score 7 - 10: 72.7% MACE over next 6 weeks - Early Invasive Strategies Course & Med Decision Making: Course & Med Decision Making Pertinent Labs and Imaging studies reviewed. (See chart for details) [] 45-year-old female presents with elevated blood sugar. Patient states she is not taking any of her diabetic medications today. Patient did not have a glucometer with her to check her blood sugar. On arrival her blood sugar was 467. Patient given 2 L normal saline bolus. All other labs unremarkable. Anion gap of 8. Patient reports that she feels much better . We will recheck blood sugar after fluid administration. Blood sugar still elevated at 457. Patient states that she feels good and is requesting to be discharged. Patient given 10 units of insulin. Instructed patient to make sure she is taking her insulin as scheduled. Patient states that she always does take her medication as directed but she was without her glucometer. Patient is hemodynamically stable. Patient denies any complaints. Dragon Disclaimer: Dragon Disclaimer: This electronic medical record was generated, in whole or in part, using a voice recognition dictation system. Departure Departure: Impression: Primary Impression: Hyperglycemia due to type 1 diabetes mellitus Disposition: HOME / SELF CARE / HOMELESS Condition: STABLE Referrals: MADIHA MODI (PCP) Patient Instructions: Hyperglycemia, [id number] Additional Instructions: You were seen in the emergency room for elevated blood sugar. You were given 10 units of insulin.Make sure you are taking your insulin as directed. Please return emergency room if you have worsening symptoms or concerns. EMERGENCY DEPARTMENT GENERAL DISCHARGE INSTRUCTIONS Thank you for coming to [facility] (ED) today and trusting us with you care. We trust that you had a positivie experience in our Emergency Department. If you wish to speak to the department management, you may call the director at [phone]. YOUR FOLLOW UP INSTRUCTIONS ARE FOLLOWS: 1. Do you have a private Doctor? If you do not have a private doctor, please ask for a resource list of physicians or clinics that may be able to assist you with follow up care. 2. The Emergency Physician has interpreted your x-rays. The X-Ray specialist will also review them. If there is a change in the findings, you will be notified in 48 hours when at all possible. 3. A lab test or culture has been done, your results will be reviewed and you will be notified if you need a change in treatment. ADDITIONAL INSTRUCTIONS AND INFORMATION: 1. Your care today has been supervised by a physician who is specially trained in emergency care. Many problems require more than one evaluation for a complete diagnosis and treatment. We recommend that you schedule your follow up appointment as recommended to ensure complete treatment of you illness or injury. If you are unable to obtain follow up care and continue to have a problem, or if your condition worsens, we recommend that you return to the ED. 2. We are not able to safely determine your condition over the phone nor are we able to give sound medical advice over the phone. For these safety reasons, if you call for medical advice we will ask you to come to the ED for further evaluation. 3. If you have any questions regarding these discharge instructions please call the ED at [phone]. SAFETY INFORMATION: In the interest of safety, wellness, and injury prevention; we encourage you to wear your sealbelt, if you smoke; quite smoking, and we encourage family to use a protective helmet for bicycling and other sporting events that present an increased risk for head injury. IF YOUR SYMPTOMS WORSEN OR NEW SYMPTOMS DEVELOP, OR YOU HAVE CONCERNS ABOUT YOUR CONDITION; OR IF YOUR CONDITION WORSENS WHILE YOU ARE WAITING FOR YOUR FOLLOW UP APPOINTMENT; EITHER CONTACT YOUR PRIMARY CARE DOCTOR, THE PHYSICIAN WHOSE NAME AND NUMBER YOU WERE GIVEN, OR RETURN TO THE ED IMMEDIATELY. BENJAMÍN CASE APRN Dec 12, 2020 16:33
[2020-12-12] MEDS ORDERED: INSULIN REGULAR 100 UNIT/ML 3ML VIAL. IV ONE (17:45)
[2020-12-12 17:50] VITALS: BP 136/84
== END 2020-12-12 17:54 | disposition home or self-care (01) ==
LOC: ER 14:43
DX: E10.65 Type 1 diabetes mellitus with hyperglycemia (principal); E78.5 Hyperlipidemia, unspecified; I10 Essential (primary) hypertension
CPT/HCPCS: 36415; 80053; 81001; 81025; 82947; 85025; 96361; 96374; 99285; J1815; J7030